=== PATIENT | female | born 1980 | race Two or more races ===

== ENCOUNTER 2020-10-07 22:50 | Emergency (ER) | payer MEDICAID, OTHER ==
[~2020-10-07] VITALS: Ht 144.8 cm; Wt 108.9 kg
[2020-10-08] VITALS (7 sets, daily range): BP systolic 116–137; BP diastolic 53–80
[2020-10-08 00:02] LABS: Basophils # (auto) 0 10 ^3/uL (0-0.2); Hematocrit 24.5 % (36.0-46.0); Hemoglobin 7.4 g/dL (12.2-16.2); Monocytes # (auto) 0.3 10 ^3/uL (0-1.3); Red Blood Cells 3.55 10^6/uL (4.0-5.20)
[2020-10-08 00:04] LABS: Basophils % (auto) 0.6 % (0.0-2.0); Eosinophils # (auto) 0.2 10 ^3/uL (0-0.8); Eosinophils % (auto) 3.7 % (0.0-7.0); Lymphocytes % (auto) 34.6 % (10.0-50.0); Mean Corpuscular Hemoglobin 20.8 pg (28.0-32.0); Mean Corpuscular Hgb Conc. 30.1 g/dL (32.0-36.0); Monocytes % (auto) 5.5 % (0.0-12.0); Neutrophils # (auto) 3.1 10 ^3/uL (1.6-8.6); Neutrophils % (auto) 55.6 % (37.0-80.0); Platelet Count (auto) 194 10^3/uL (140-450); Red Cell Distribution Width 19.7 % (11.8-14.3); White Blood Cell 5.7 10^3/uL (4.4-10.8)
[2020-10-08 00:18] LABS: Albumin 3.6 g/dL (3.4-5.0); Anion Gap 5 (5-15); Blood Urea Nitrogen 10 mg/dL (7-18); Calcium 8.2 mg/dL (8.5-10.1); Carbon Dioxide 23 mmol/L (21-32); Chloride 109 mmol/L (98-107); Glucose 117 mg/dL (74-106); Potassium 4.4 mmol/L (3.5-5.1); Sodium 137 mmol/L (136-145)
[2020-10-08 00:24] LABS: Alanine Aminotransferase 25 U/L (13-56); Alkaline Phosphatase 66 U/L (45-117); Aspartate Aminotransferase 34 U/L (15-37); BUN/Creatinine Ratio 12.7; Bilirubin, Total 0.4 mg/dL (0.2-1.0); GFR African American 104 mL/min; GFR Non-African American 86 mL/min; Total Protein 7.1 g/dL (6.4-8.2)
[2020-10-08 01:30] LABS: Urine WBC None Seen /hpf (0 - 5)
[2020-10-08 01:37] LABS: Urine Bacteria FEW /hpf (None Seen); Urine Blood Negative /uL (Negative); Urine Specific Gravity 1.006 (1.001-1.035)
[2020-10-08] MEDS ORDERED: LIDOCAINE 5% TOPICAL PATCH TOP ONE (04:15)
== END 2020-10-08 14:07 | disposition home or self-care (01) ==
LOC: ER 22:50
DX: D64.9 Anemia, unspecified (principal); I10 Essential (primary) hypertension; Z88.0 Allergy status to penicillin; Z91.040 Latex allergy status
CPT/HCPCS: 36415; 36430; 80053; 81001; 84484; 85025; 86850; 86900; 86901; 86920; 93005; 99285; J7030; P9016